=== PATIENT | male | born 1960 | race Caucasian/White ===

== ENCOUNTER 2021-02-13 07:05 | Outpatient (REF) | payer OTHER, SELFPAY ==
[2021-02-13 11:29] LABS: Glucose Urine UA NEG (NEG); Leukocyte Esterase Urine NEG (NEG); Nitrite Urine NEG (NEG); PH 6.5 (5.0-8.0); Specific Gravity - Urine 1.015 (1.005-1.025); Urine Blood NEG (NEG); Urine Ketones NEG (NEG); Urine Protein TRACE MG/DL (NEG-TRACE)
[2021-02-13 11:43] LABS: Appearance Urine CLEAR; Color Urine YELLOW
[2021-02-13 11:52] LABS: Alanine Aminotransferase 45 U/L (0-40); Albumin Level 4.1 g/dL (3.5-5.0); Alkaline Phosphatase 80 U/L (39-117); Anion Gap 14 (12-20); Aspartate Amino Transferase 42 U/L (5-37); Bilirubin Total 1.1 mg/dL (0.0-1.0); Blood Urea Nitrogen 29 mg/dL (9-16); Carbon Dioxide 27 mmol/L (22-29); Chloride 104 mmol/L (96-108); Cholesterol 149 mg/dL; Estimated Glomerular Filt Rate > 60; Glucose Fasting 96 mg/dL (60-99); HDL Cholesterol 52 mg/dL; LDL Cholesterol Calculated 82 mg/dl; Potassium 4.4 mmol/L (3.3-5.1); Sodium 141 mmol/L (135-145); Total Protein 6.6 g/dL (6.5-8.0); Triglycerides 79 mg/dL
[2021-02-13 11:55] LABS: RBC Urine 0-2 /HPF (0); Squamous Epithelial Cell Urine TRACE /LPF; WBC Urine 0 /HPF (0-4)
[2021-02-13 12:15] LABS: Prostate Specific Antigen Scr 0.82 ng/mL (<0.05-4.0); TSH reflex Free T4 1.51 uIU/mL (0.32-4.0)
== END 2021-02-13 07:06 | disposition home or self-care (01) ==
LOC: HO.HMGCLDS 07:05
PROVIDERS: PCP Nurse Practitioner Family; Referring Provider Nurse Practitioner Family; Visit Provider Nurse Practitioner Family
DX: Z00.00 Encounter for general adult medical examination without abnormal findings (principal); R22.30 Localized swelling, mass and lump, unspecified upper limb; Z12.5 Encounter for screening for malignant neoplasm of prostate
CPT/HCPCS: 36415; 80053; 80061; 81001; 84153; 84443

== ENCOUNTER 2021-03-07 12:55 | Outpatient (REF) | payer OTHER, SELFPAY ==
--- NOTE | ~2021-03-07 | US_ITS ---
EXAMINATION: ULTRASOUND EXTREMITY NONVASCULAR CLINICAL INFORMATION: Localized swelling, mass or lump right shoulder COMPARISON: None TECHNIQUE: Doppler, color and grayscale evaluation of the soft tissues over the anterior right shoulder in the area of palpable abnormality FINDINGS: Palpable abnormality corresponds to a 2.1 x 2.7 x 0.9 cm complex cystic lesion with some septations, areas of wall thickening and internal echoes. Ultrasound appearance is nonspecific. Abscess and hematoma should be considered. Management should be determined on a clinical basis. US/US extremity nonvascular IMPRESSION: Palpable abnormality corresponds to a 2.1 x 2.7 x 0.9 cm complex cystic lesion. Ultrasound appearance is nonspecific and management should be determined on a clinical basis.
== END 2021-03-07 12:56 | disposition home or self-care (01) ==
LOC: HO.HMGCX 12:55
PROVIDERS: Visit Provider Nurse Practitioner Family
DX: R22.30 Localized swelling, mass and lump, unspecified upper limb (principal)
CPT/HCPCS: 76882

== ENCOUNTER 2022-09-02 08:29 | Outpatient (REF) | payer OTHER, SELFPAY ==
--- NOTE | ~2022-09-02 | XR_ITS ---
EXAMINATION: XR SHOULDER, LEFT CLINICAL INFORMATION: Left shoulder pain. COMPARISON: None TECHNIQUE: Three views of the left shoulder. FINDINGS: Mild left glenohumeral degenerative joint changes are seen with small humeral head inferior periarticular marginal osteophyte. The left acromioclavicular joint is intact. The visualized left ribs are intact. The soft tissues are unremarkable XR/XR shoulder LT min 2V IMPRESSION: Mild left glenohumeral degenerative joint changes. No acute fracture.
--- NOTE | ~2022-09-02 | XR_ITS ---
EXAMINATION: XR ELBOW, LEFT CLINICAL INFORMATION: Left elbow pain. COMPARISON: None TECHNIQUE: AP, lateral, and oblique views of the left elbow. FINDINGS: The bones and soft tissues are normal. No fracture or joint effusion. Small osteophyte along the medial margin of the humeral ulnar joint space as well as medial humeral epicondyle. Alignment is anatomic. Joint spaces are maintained. XR/XR elbow LT min 3V IMPRESSION: Minimal degenerative joint changes. No no acute abnormality.
== END 2022-09-02 08:30 | disposition home or self-care (01) ==
LOC: HO.HMGCX 08:29
PROVIDERS: PCP Nurse Practitioner Family; Visit Provider Physician Assistant
DX: M25.512 Pain in left shoulder (principal); M25.522 Pain in left elbow
CPT/HCPCS: 73030; 73080

== ENCOUNTER → 2022-09-19 14:01 | Outpatient (BNVA) | payer OTHER, SELFPAY | PROVIDERS: PCP Nurse Practitioner Family; Visit Provider Physician Assistant | DX: M54.12 Radiculopathy, cervical region (principal) ==

== ENCOUNTER 2022-10-08 10:07 | Outpatient (REF) | payer OTHER, SELFPAY ==
--- NOTE | ~2022-10-08 | XR_ITS ---
EXAMINATION: XR CERVICAL SPINE CLINICAL INFORMATION: Radiculopathy, cervical region COMPARISON: None TECHNIQUE: 4 view cervical spine FINDINGS: No abnormal prevertebral soft tissue swelling is seen. No acute cervical spine fracture is noted. There is approximately 3 mm of anterior subluxation of C5 on C4. There is disc space narrowing seen C4-C7 with marginal spurring being seen C3-C7. There is approximately 3 mm of subluxation anteriorly of C5 on C6. There is multilevel bilateral facet degenerative change more significant along the left versus the right side of C2-C4 XR/XR cervical spine 3V IMPRESSION: Multilevel cervical spondylosis as described without fracture identified.
== END 2022-10-08 10:08 | disposition home or self-care (01) ==
LOC: HO.HMGCX 10:07
PROVIDERS: PCP Nurse Practitioner Family; Visit Provider Nurse Practitioner Family
DX: M54.12 Radiculopathy, cervical region (principal)
CPT/HCPCS: 72040

== ENCOUNTER → 2022-10-27 11:31 | Outpatient (BNVA) | payer OTHER, SELFPAY | PROVIDERS: PCP Nurse Practitioner Family; Visit Provider Anesthesiology | DX: Z13.89 Encounter for screening for other disorder (principal) ==

== ENCOUNTER → 2022-11-25 10:29 | Outpatient (BNVA) | payer OTHER, SELFPAY | PROVIDERS: PCP Nurse Practitioner Family; Visit Provider Physician Assistant | DX: Z13.89 Encounter for screening for other disorder (principal) ==

== ENCOUNTER 2022-12-17 09:17 | Outpatient (REF) | payer OTHER, SELFPAY ==
--- NOTE | 2022-12-17 09:19 | EMG_ITS ---
Please see scanned EMG / Nerve Conduction Report. MTDD
== END 2022-12-17 09:18 | disposition home or self-care (01) ==
LOC: HO.NEURO 09:17
PROVIDERS: PCP Nurse Practitioner Family; Visit Provider Nurse Practitioner Family
DX: R20.0 Anesthesia of skin (principal)
CPT/HCPCS: 95885; 95910

== ENCOUNTER 2023-06-25 07:47 | Outpatient (REF) | payer OTHER, SELFPAY ==
[2023-06-25 11:06] LABS: MANUAL DIFF FLAG NO
[2023-06-25 11:18] LABS: Appearance Urine Clear; Color Urine Yellow; Glucose Urine UA Negative (Negative); Leukocyte Esterase Urine Negative (Negative); Nitrite Urine Negative (Negative); Specific Gravity - Urine >= 1.030 (1.005-1.025); Urine Blood Negative (Negative); Urine Ketones Negative (Negative); Urine Protein Negative (Neg-Trace)
[2023-06-25 11:20] LABS: Eosinophils Absolute Auto 0.2 X10*3/uL (0.0-0.4); Eosinophils Percent Auto 5.1 % (0-4); Hemoglobin 16.2 g/dl (14.0-18.0); Imm Gran Abs Auto 0.01 X10*3/uL (0.00-0.03); Imm Gran Pct Auto 0.2 % (0.0-0.4); Lymphocytes Absolute Auto 1.3 X10*3/uL (1.2-4.9); Lymphocytes Percent Auto 31.6 % (20-40); Mean Corpuscular HGB Conc 34.5 g/dl (31.0-36.0); Mean Corpuscular Hemoglobin 32.5 pg (27.0-33.0); Mean Corpuscular Volume 94.2 fL (80.0-98.0); Mean Platelet Volume 9.5 fL (9.4-12.4); Monocytes Absolute Auto 0.5 X10*3/uL (0.1-1.2); Neutrophils Absolute Auto 2.1 x10*3/uL (2.0-8.3); Neutrophils Percent Auto 50.1 % (45-73); Platelet Count 308 X10*3/uL (160-400); Red Blood Count 4.99 X10*6/uL (4.60-5.80); Red Cell Distribution Width 13.6 % (11.0-16.0); White Blood Count 4.2 X10*3/uL (4.8-10.8)
[2023-06-25 11:46] LABS: Prostate Specific Antigen Scr 1.04 ng/mL (<0.05-4.0)
[2023-06-25 11:50] LABS: Alanine Aminotransferase 37 U/L (0-40); Albumin Level 4.3 g/dL (3.5-5.0); Alkaline Phosphatase 82 U/L (39-117); Anion Gap 16 (12-20); Aspartate Amino Transferase 43 U/L (5-37); Bilirubin Total 0.9 mg/dL (0.0-1.0); Blood Urea Nitrogen 25 mg/dL (9-16); Calcium 9.7 mg/dL (8.4-10.2); Carbon Dioxide 24 mmol/L (22-29); Chloride 104 mmol/L (96-108); Cholesterol 160 mg/dL (<200); Estimated Glomerular Filt Rate > 60; Glucose Fasting 98 mg/dL (60-99); HDL Cholesterol 52 mg/dL (>40); LDL Cholesterol Calculated 97 mg/dL (<100); Potassium 3.9 mmol/L (3.3-5.1); Sodium 140 mmol/L (135-145); Total Protein 7.2 g/dL (6.5-8.0); Triglycerides 55 mg/dL (<150)
[2023-06-25 12:13] LABS: TSH reflex Free T4 1.65 uIU/mL (0.32-4.0)
== END 2023-06-25 07:48 | disposition home or self-care (01) ==
LOC: HO.HMGCLDS 07:47
PROVIDERS: PCP Nurse Practitioner Family; Visit Provider Nurse Practitioner Family
DX: Z00.00 Encounter for general adult medical examination without abnormal findings (principal); Z12.5 Encounter for screening for malignant neoplasm of prostate; D72.819 Decreased white blood cell count, unspecified; Z13.0 Encounter for screening for diseases of the blood and blood-forming organs and certain disorders involving the immune mechanism; Z13.29 Encounter for screening for other suspected endocrine disorder; Z13.220 Encounter for screening for lipoid disorders
CPT/HCPCS: 36415; 80053; 80061; 81003; 84153; 84443; 85025

== ENCOUNTER 2023-08-19 13:21 | Outpatient (REF) | payer OTHER, SELFPAY ==
[2023-08-19 16:14] LABS: MANUAL DIFF FLAG NO
[2023-08-19 16:24] LABS: Basophils Absolute Auto 0.1 X10*3/uL (0.0-0.2); Eosinophils Absolute Auto 0.3 X10*3/uL (0.0-0.4); Eosinophils Percent Auto 4.3 % (0-4); Hematocrit 46.5 % (42.0-52.0); Imm Gran Abs Auto 0.02 X10*3/uL (0.00-0.03); Imm Gran Pct Auto 0.3 % (0.0-0.4); Lymphocytes Absolute Auto 1.6 X10*3/uL (1.2-4.9); Lymphocytes Percent Auto 28.2 % (20-40); Mean Corpuscular HGB Conc 34.4 g/dl (31.0-36.0); Mean Corpuscular Hemoglobin 32.4 pg (27.0-33.0); Mean Corpuscular Volume 94.1 fL (80.0-98.0); Mean Platelet Volume 9.7 fL (9.4-12.4); Monocytes Absolute Auto 0.6 X10*3/uL (0.1-1.2); Monocytes Percent Auto 10.1 % (2-11); Neutrophils Absolute Auto 3.2 x10*3/uL (2.0-8.3); Neutrophils Percent Auto 56.1 % (45-73); Platelet Count 319 X10*3/uL (160-400); Red Blood Count 4.94 X10*6/uL (4.60-5.80); Red Cell Distribution Width 13.3 % (11.0-16.0); White Blood Count 5.8 X10*3/uL (4.8-10.8)
== END 2023-08-19 13:22 | disposition home or self-care (01) ==
LOC: HO.HMGCLDS 13:21
PROVIDERS: PCP Nurse Practitioner Family; Visit Provider Nurse Practitioner Family
DX: D72.819 Decreased white blood cell count, unspecified (principal)
CPT/HCPCS: 36415; 85025

== ENCOUNTER 2024-01-18 12:54 | Outpatient (AMB) | payer OTHER, SELFPAY ==
--- NOTE | 2024-01-18 12:57 | MHC.PC.OV ---
Vital Signs 01/18/24 12:59 Height 5 ft 9 in Weight 229 lb BMI 33.8 BP 120/86 Blood Pressure Location Lt brachial Position Sitting Pulse 78 Pulse Source Pulse Oximeter Pulse Oximetry (%) 98 Oxygen Delivery Method Room Air Intake Visit Reasons: PE Intake Note: Patient here for physical exam. colon: needs to schedule appt. Allergies No Known Allergies [No Known Allergies*] Allergy (Verified 01/18/24 12:59) Medication List - Last Reconciled 01/18/24 by CONSTANTINE Andres aspirin 81 mg PO DAILY atorvastatin 40 mg PO DAILY bisacodyl (Dulcolax (bisacodyl)) 10 mg (2 x 5 mg) PO ONCE 1 day hydrochlorothiazide 25 mg PO DAILY 90 days polyethylene glycol 3350 (Miralax) 238 grams PO ONCE 1 day valsartan 80 mg PO DAILY 90 days Tobacco use date assessed: 01/18/24 Dental Screening Dental Screen Date: 01/18/24 Did you have a dental visit in the last 12 months?: Yes Did you have a dental problem in the last 6 months where you did not have access to dental care?: No Was dental information given to patient?: Patient has dentist HPI PE HPI Details Pt is here for a PE. Will order labs. PSA is up to date. Denies dribbling with urination, weak stream, and frequent nocturia. Pt has not scheduled his colon screen yet due to scheduling conflicts, will reach out to GI. Pt is bald and has fair skin, pt reports he will make his own derm appt. FORMERLY [facility] Medical History Fatty liver Surgical History History of total right hip arthroplasty History of removal of cyst Torn rotator cuff Family History Father Myocardial infarction Mother Alzheimer's disease COPD (chronic obstructive pulmonary disease) Maternal Grandfather No problems noted. Maternal Grandmother No problems noted. Paternal Grandfather Heart problem Paternal Grandmother No problems noted. Social History Household Members Other:: 3 kids- Housing: House Alcohol intake: current Alcohol intake frequency: a few times a week Patient Tobacco Use Status: Never used Tobacco e-Cigarette/Vaping Use: Never Used Current occupational status: employed Current occupation: [employer]/ right hand dominant Cognitive needs: No Hearing needs: No Vision needs: No Questionnaire PHQ-9 Over the last 2 weeks, how often have you been bothered by any of the following problems? 1. Little interest or pleasure in doing things: not at all 2. Feeling down, depressed, or hopeless: not at all 3. Trouble falling or staying asleep, or sleeping too much: not at all 4. Feeling tired or having little energy: not at all 5. Poor appetite or overeating: not at all 6. Feeling bad about yourself - or that you are a failure or have let yourself or your family down: not at all 7. Trouble concentrating on things, such as reading the newspaper or watching television: not at all 8. Moving or speaking so slowly that other people could have noticed. Or the opposite - being so fidgety or restless that you have been moving around a lot more than usual: not at all 9. Thoughts that you would be better off or of hurting yourself in some way: not at all Total score: 0 Depression Screening Interpretation: Negative Depression Screening Done: Yes 06576 - PHQ-9 Billing: Yes Source: Developed by Drs. Toby Harris, Anahi Alcantar, Min Hernandez and colleagues, with an educational aldo from [employer]. Thrive Questionnaire Date Thrive assessed: 01/18/24 I am a: Patient What is your living situation today?: I have a steady place to live Within the past 12 months, did the food you bought not last and you didn't have the money to get more?: Never true Within the past 12 months, did you worry whether your food would run out before you got money to buy more?: Never true Do you have trouble paying for medicines?: No Do you have trouble getting transportation to medical appointments?: No Do you have trouble paying your heating and electricity bill?: No Do you have trouble taking care of your child, family member or friend?: No Do you have trouble with day-to-day activities such as bathing, preparing meals, shopping, managing finances, etc.?: No Are you currently unemployed and looking for a job?: No Are you interested in more education?: No Currently or been in a relationship where the following occur: I choose not to answer this question THRIVE Score: 0 AUDIT C Alcohol Use Questionnaire (AUDIT-C) 1. How often do you have a drink containing alcohol?: 2-3 times a week 2. How many drinks containing alcohol do you have on a typical day when you are drinking?: 1 or 2 3. How often do you have six or more drinks on one occasion?: Never Total Score: 3 Score Reviewed/Action Taken: No MICHELL-7 AMB Questionnaire MICHELL-7 Date MICHELL - 7 assessed: 01/12/23 Feeling nervous, anxious, or on edge: 0 = Not at all Not being able to stop or control worryin = Not at all Worrying too much about different things: 0 = Not at all Trouble relaxin = Not at all Being so restless that it is hard to sit still: 0 = Not at all Becoming easily annoyed or irritable: 0 = Not at all Feeling afraid as if something awful might happen: 0 = Not at all Total MICHELL-7 score (0-4 normal; 5-9 mild; 10-14 moderate; 15-21 severe): 0 Source: Developed by Drs. Toby Harris, Anahi Alcantar, Min Hernandez and colleagues, with an educational aldo from [employer]. MICHELL-7 Assessment Billing MICHELL-7 Assessment Tool: MICHELL-7 Assessment 74162 Review of Systems Const Denies chills and Denies fever(s) Eyes Denies blurry vision ENT Denies vertigo, Denies dizziness and Denies sore throat Card Denies chest pain at rest, Denies chest pain with activity, Denies diaphoresis, Denies dyspnea and Denies dyspnea on exertion Resp Denies cough, Denies dyspnea, Denies dyspnea on exertion and Denies wheezing GI Denies abdominal pain, Denies melena, Denies hematochezia, Denies constipation, Denies diarrhea and Denies loose stools Denies hematuria Musc Denies numbness and Denies tingling Skin/Breast Denies lesions Neuro Denies vertigo, Denies dizziness, Denies numbness and Denies tingling Psych Denies anxiety, Denies depression, Denies homicidal ideation, Denies suicidal ideation and Denies other (substance abuse) Aller/Immun Denies wheezing Physical exam (Primary Care) Vital Signs: Last Vital Signs Pulse 78 01/18/24 12:59 BP 120/86 01/18/24 12:59 Pulse Ox 98 01/18/24 12:59 Oxygen Delivery Method Room Air 01/18/24 12:59 BMI result Body Mass Index 33.8 Tobacco/Smoking Status: Tobacco use Status Tobacco use date assessed 01/18/24 01/18/24 13:02 Patient Tobacco Use Status Never used Tobacco 01/18/24 12:59 e-Cigarette/Vaping Use Never Used 01/18/24 12:59 Depression Screening Interpretation: Negative Thrive Assessment: Date of Thrive Assessment Date Thrive assessed 01/12/23 01/18/24 12:59 Currently or been in a relationship where the following occur: I choose not to answer this question Const General: cooperative Nutritional Appearance: obese Orientation/consciousness: patient oriented x3 HENMT Head: Yes normal to inspection, Yes normocephalic and Yes atraumatic Ears: TM's normal bilaterally Eyes General: appearance normal, both eyes and all related structures Alignment and Position: alignment normal and position normal Neck Neck: Yes normal visual inspection and Yes no lymphadenopathy Thyroid: Thyroid normal Resp Effort & Inspection: normal respiratory effort Auscultation: clear to auscultation bilaterally Cardio Rate: regular rate Rhythm: regular rhythm Heart sounds: S1 normal heart sound present, S2 normal heart sound present and no murmurs GI Palpation (GI): Soft to palpation and nontender Auscultation: normal bowel sounds Male General Exam: Yes normal external exam Penis: normal penis Scrotum: scrotum normal, testes descended bilaterally and no inguinal hernias Testes: no testicular mass Skin Rashes: no rashes Neuro General: patient oriented x3, moves all extremities, no focal motor deficits and deep tendon reflexes 2+ bilaterally Romberg Test: Negative Psych Appearance: grossly normal Mental Status: mental status grossly normal Speech and movement: Normal speech and movement present Affect: normal affect Attitude: cooperative Thought process: Normal thought process present Thought content: Normal thought content present Insight: Good insight present (Psych) Judgement: Good judgement present (Psych) Assessment and Plan Assessment & Plan (1) Physical exam: Code(s): Z00.00 - Encounter for general adult medical examination without abnormal findings Plan: Labs ordered (2) Screening PSA (prostate specific antigen): Code(s): Z12.5 - Encounter for screening for malignant neoplasm of prostate Plan: PSA ordered Plan The patient agreed to the use of a biomedical equipment specialist for this encounter. Scribed for RENETTA Wheeler-BRANDON by Jena Horton biomedical equipment specialist, on 01/18/2024 at 13:15 EST. Orders: Orders Complete Blood Count Auto Diff Today Z00.00 - Encounter for general adult medical examination without abnormal findings UA CC w/rflx Micro + Cult Today Z00.00 - Encounter for general adult medical examination without abnormal findings Lipid Panel Today Z00.00 - Encounter for general adult medical examination without abnormal findings AMB EKG-In Office Today Z00.00 - Encounter for general adult medical examination without abnormal findings Comprehensive Norton. Panel Fast Today Z00.00 - Encounter for general adult medical examination without abnormal findings TSH reflex Free T4 Today Z00.00 - Encounter for general adult medical examination without abnormal findings Prostate Specific Antigen Scr Today Z12.5 - Encounter for screening for malignant neoplasm of prostate Coding Level of Care Code Est Pt Prev Care 40-64y(83452) Diagnoses Physical exam Z00.00 Screening PSA (prostate specific antigen) Z12.5 Additional Codes MICHELL-7 Assessment Billing - MICHELL-7 Assessment Tool: MICHELL-7 Assessment 55943 ([id number])
[2024-01-18 12:59] VITALS: BP 120/86; PULSE 78; O2SAT 98; BMI 33.8
== END 2024-01-18 13:39 | disposition home or self-care (01) ==
PROVIDERS: Visit Provider Nurse Practitioner Family
DX: Z00.00 Encounter for general adult medical examination without abnormal findings (principal); Z12.5 Encounter for screening for malignant neoplasm of prostate
CPT/HCPCS: 99396

== ENCOUNTER 2024-01-20 07:07 | Outpatient (REF) | payer OTHER, SELFPAY ==
[2024-01-20 10:36] LABS: MANUAL DIFF FLAG NO
[2024-01-20 10:39] LABS: Basophils Percent Auto 0.9 % (0-2); Eosinophils Percent Auto 7.4 % (0-4); Hematocrit 44.2 % (42.0-52.0); Hemoglobin 15.7 g/dl (14.0-18.0); Imm Gran Abs Auto 0.01 X10*3/uL (0.00-0.03); Mean Corpuscular HGB Conc 35.5 g/dl (31.0-36.0); Mean Corpuscular Hemoglobin 32.6 pg (27.0-33.0); Mean Corpuscular Volume 91.7 fL (80.0-98.0); Mean Platelet Volume 9.4 fL (9.4-12.4); Neutrophils Absolute Auto 2.1 x10*3/uL (2.0-8.3); Platelet Count 309 X10*3/uL (160-400); Red Blood Count 4.82 X10*6/uL (4.60-5.80); Red Cell Distribution Width 13.7 % (11.0-16.0); White Blood Count 4.4 X10*3/uL (4.8-10.8)
[2024-01-20 11:33] LABS: Alanine Aminotransferase 35 U/L (0-40); Alkaline Phosphatase 75 U/L (39-117); Anion Gap 14 (12-20); Aspartate Amino Transferase 38 U/L (5-37); Bilirubin Total 0.8 mg/dL (0.0-1.0); Blood Urea Nitrogen 27 mg/dL (9-16); Calcium 9.2 mg/dL (8.4-10.2); Carbon Dioxide 26 mmol/L (22-29); Chloride 104 mmol/L (96-108); Cholesterol 145 mg/dL (<200); Estimated Glomerular Filt Rate > 60; Glucose Fasting 98 mg/dL (60-99); HDL Cholesterol 52 mg/dL (>40); LDL Cholesterol Calculated 83 mg/dL (<100); Potassium 3.6 mmol/L (3.3-5.1); Sodium 140 mmol/L (135-145); Total Protein 6.9 g/dL (6.5-8.0); Triglycerides 51 mg/dL (<150)
== END 2024-01-20 07:08 | disposition home or self-care (01) ==
LOC: HO.HMGCLDS 07:07
PROVIDERS: PCP Nurse Practitioner Family; Visit Provider Nurse Practitioner Family
DX: Z00.00 Encounter for general adult medical examination without abnormal findings (principal); Z12.5 Encounter for screening for malignant neoplasm of prostate; Z13.6 Encounter for screening for cardiovascular disorders
CPT/HCPCS: 36415; 80053; 80061; 84153; 84443; 85025

== ENCOUNTER 2024-12-01 08:08 | Outpatient (AMB) | payer OTHER, SELFPAY ==
--- NOTE | 2024-12-01 08:20 | AM.OFFWIN_ITS ---
Intake Vital Signs 12/01/24 08:22 Height 5 ft 9 in Weight 230 lb BMI 34.0 BP 130/80 Blood Pressure Location Lt brachial Position Sitting Pulse 68 Pulse Source Pulse Oximeter Pulse Oximetry (%) 97 Oxygen Delivery Method Room Air Intake Visit Reasons: EP Lump on inside of LT knee, achilles pain Intake Note: Patient here for left knee pain that has been present on and off since last January. Patient Tobacco Use Status: Never used Tobacco Allergies No Known Allergies [No Known Allergies*] Allergy (Verified 12/01/24 08:37) Do you need a note to return to daycare/school/sports/work: No HPI HPI Comments History of Present Illness Details History of Present Illness - The patient is a 64-year-old male pres enting with a left knee lump and Achilles discomfort. - Approximately two weeks ago, the patie nt identified a lump on the knee, which remains unchanged in size and presents as non-bruised. Palpation of the lump elicits minor tenderness. There is no pain otherwise. - The patient experiences long-standing, since last January, mild discomfort in the Achilles tendon, which began the morning following his wedding. There is no recollection of a specific injury. - Management of the Achilles strain has consisted of stretching exercises and walking, with no significant exacerbation or resolution noted. Physical Exam General: Cooperative, healthy appearing, comfortable, no acute distress and well developed Orientation: Patient oriented x3 Limitations: No limitations Head: Normal to inspection Ears: Hearing grossly normal bilaterally Nose: Normal external nose present Face and sinus: Normal facial exam Eyes: Appearance normal, both eyes and all related structures Neck: Normal visual inspection and Yes full ROM Respiratory: Normal respiratory effort and able to speak in complete sentences. Skin: No rashes or lesions noted Neuro: Patient oriented x3 Extremities: left medial knee has a palpable, nonmobile 2cmx 1cm lump, no skin discoloration, slightly ttp. full rom FORMERLY [facility] Medical History Fatty liver Surgical History History of total right hip arthroplasty History of removal of cyst Torn rotator cuff Family History Father Myocardial infarction Mother Alzheimer's disease COPD (chronic obstructive pulmonary disease) Maternal Grandfather No problems noted. Maternal Grandmother No problems noted. Paternal Grandfather Heart problem Paternal Grandmother No problems noted. Social History Household Members Other:: 3 kids- Housing: House Alcohol intake: current Alcohol intake frequency: a few times a week Patient Tobacco Use Status: Never used Tobacco e-Cigarette/Vaping Use: Never Used Current occupational status: employed Current occupation: [employer]/ right hand dominant Cognitive needs: No Hearing needs: No Vision needs: No Review of Systems Const All systems reviewed & are unremarkable except as noted in HPI and below Physical Exam Vital Signs: Last Vital Signs Pulse 68 12/01/24 08:22 BP 130/80 12/01/24 08:22 Pulse Ox 97 12/01/24 08:22 Oxygen Delivery Method Room Air 12/01/24 08:22 BMI result Body Mass Index 34.0 Assessment & Plan Assessment & Plan (1) Knee pain, left anterior: Code(s): M25.562 - Pain in left knee Plan: The patient has been scheduled for an X-ray examination of the knee to evaluate the etiology of the lump, with results to be communicated afterward to decide on subsequent steps. Patient was informed and verbally consented to the use of an ambient scribe for clinic note documentation during this visit. (2) Achilles tendinitis, left leg: Code(s): M76.62 - Achilles tendinitis, left leg Plan: For the Achilles tendon strain, heel inserts were recommended to mitigate the strain and alleviate discomfort. Physical therapy with stretching exercises was suggested, supported by reputable online resources, and a potential follow-up with Oracio's office was planned if necessary. The management aims primarily at alleviating strain and monitoring improvement before considering advanced intervention. Orders: Orders XR knee LT 4V Today M25.562 - Pain in left knee Coding Level of Care Code Est Pt Level 4 (79290) Diagnoses Knee pain, left anterior M25.562 Achilles tendinitis, left leg M76.62
[2024-12-01 08:22] VITALS: BP 130/80; PULSE 68; O2SAT 97; BMI 34.0
== END 2024-12-01 08:56 | disposition home or self-care (01) ==
PROVIDERS: PCP Nurse Practitioner Family; Visit Provider Physician Assistant
DX: M25.562 Pain in left knee (principal); M76.62 Achilles tendinitis, left leg

== ENCOUNTER 2024-12-01 08:08 | Outpatient (REF) | payer OTHER, SELFPAY ==
--- NOTE | ~2024-12-01 | XR_ITS ---
EXAMINATION: XR KNEE 4 OR MORE VIEWS LEFT HISTORY: M25.562 - Pain in left knee COMPARISON: Comparison is made with a standing AP view of the left knee dated 03/26/2016. FINDINGS: Four views of the left knee are submitted. Osseous mineralization is normal. There is no fracture or dislocation. There is mild osteoarthritis of the lateral compartment with small osteophyte formation. There are multiple rounded osseous densities in the posterior aspect of the joint space suspicious for loose bodies. XR/XR knee LT 4V IMPRESSION: Mild osteoarthritis of the lateral compartment. Probable loose bodies. Electronically signed by: Toby Jones MD 12/01/2024 09:12 AM EDT
== END 2024-12-01 08:09 | disposition home or self-care (01) ==
LOC: HO.HMGCX 08:08
PROVIDERS: PCP Nurse Practitioner Family; Visit Provider Physician Assistant
DX: M25.562 Pain in left knee (principal); M76.62 Achilles tendinitis, left leg
CPT/HCPCS: 73564

== ENCOUNTER → 2024-12-01 08:53 | Outpatient (BNV) | payer OTHER, SELFPAY | PROVIDERS: PCP Nurse Practitioner Family; Visit Provider Radiology Diagnostic Radiology | DX: M25.562 Pain in left knee (principal) | CPT/HCPCS: 73564 ==

== ENCOUNTER 2024-12-12 15:24 | Outpatient (REF) | payer OTHER, SELFPAY ==
--- NOTE | ~2024-12-12 | US_ITS ---
EXAMINATION: US EXTREMITY MUSCULOSKELETAL LIMITED HISTORY: M25.562 - Pain in left knee COMPARISON: There are no prior studies for comparison. FINDINGS: Sonographic examination of a palpable abnormality at the anterior aspect of the left knee was performed. No soft tissue mass or fluid collection is identified. US/US extremity nonvascular gardiner IMPRESSION: No sonographic abnormality is seen to correspond to the palpable findings at the anterior aspect of the left knee. Electronically signed by: Toby Jones MD 12/12/2024 03:47 PM EDT
== END 2024-12-12 15:25 | disposition home or self-care (01) ==
LOC: HO.HMGCX 15:24
PROVIDERS: PCP Nurse Practitioner Family; Visit Provider Nurse Practitioner Family
DX: M25.562 Pain in left knee (principal); M79.9 Soft tissue disorder, unspecified
CPT/HCPCS: 76882

== ENCOUNTER → 2024-12-12 15:25 | Outpatient (BNV) | payer OTHER, SELFPAY | PROVIDERS: PCP Nurse Practitioner Family; Visit Provider Radiology Diagnostic Radiology | DX: M25.562 Pain in left knee (principal) | CPT/HCPCS: 76882 ==

== ENCOUNTER 2025-02-08 08:02 | Outpatient (AMB) | payer OTHER, SELFPAY ==
[2025-02-08 08:18] VITALS: BP 122/72; PULSE 80; O2SAT 95; BMI 32.9
--- NOTE | 2025-02-08 08:18 | MHC.OFFVIS ---
Vital Signs 02/08/25 08:18 Height 5 ft 9 in Weight 223 lb BMI 32.9 BP 122/72 Blood Pressure Location Lt brachial Position Sitting Pulse 80 Pulse Oximetry (%) 95 Oxygen Delivery Method Room Air Intake Visit Reasons: pre colonoscopy/[facility] 11/25/2022 Intake Note: Patient complex follow upfor Pre Colonoscopy screening/[facility] 11/25/2022 Patient denies any GI issues. Policy Specialist Required: No Accompanied by: Self / Same As Patient Allergies No Known Allergies [No Known Allergies*] Allergy (Verified 02/08/25 08:17) Medication List - Last Reconciled 02/08/25 by Yudy Riojas CNP aspirin 81 mg PO DAILY atorvastatin 40 mg PO DAILY bisacodyl (Dulcolax (bisacodyl)) 10 mg (2 x 5 mg) PO ONCE 1 day [id number]-Opqpgeochzfagac 500-200 mg tabs PO DAILY hydrochlorothiazide 25 mg PO DAILY 90 days multivitamin 1 tab PO DAILY omega-3 fatty acids-fish oil 360-1,200 mg (Fish Oil) 1 cap PO DAILY polyethylene glycol 3350 (Miralax) 238 grams PO ONCE 1 day valsartan 80 mg PO DAILY 90 days HPI HPI pre colonoscopy/[facility] 11/25/2022: Details: Patient is a 64-year-old male with PMH of hypertension and hyperlipidemia . Last visit with MORIAH Vasquez 11/25/2022 for pre colonoscopy screening, endoscopy not complete. Sonny presents for a consultation to discuss preparation for a rescheduled colonoscopy. He reports no current gastrointestinal symptoms. Reports daily bowel movement without issues, straining, constipation, loose stools, blood in stools, or upper stomach symptoms such as acid reflux, regurgitation, or trouble swallowing. Patient denies: fever/chills, n/v, appetite changes, unintentional wt loss or ab pain. -tolerated anesthesia in the past without difficulty. [facility] Medical History Fatty liver Surgical History History of total right hip arthroplasty History of removal of cyst Torn rotator cuff Family History Father Myocardial infarction Mother Alzheimer's disease COPD (chronic obstructive pulmonary disease) Maternal Grandfather No problems noted. Maternal Grandmother No problems noted. Paternal Grandfather Heart problem Paternal Grandmother No problems noted. Social History Household Members Other:: 3 kids- Housing: House Alcohol intake: current Alcohol intake frequency: a few times a week Patient Tobacco Use Status: Never used Tobacco e-Cigarette/Vaping Use: Never Used Current occupational status: employed Current occupation: [employer]/ right hand dominant Cognitive needs: No Hearing needs: No Vision needs: No Review of Systems Const Reports as per HPI ENT Reports as per HPI Card Reports as per HPI Resp Reports as per HPI GI Reports as per HPI Reports as per HPI Physical Exam Vital Signs: Last Vital Signs Pulse 80 02/08/25 08:18 BP 122/72 02/08/25 08:18 Pulse Ox 95 02/08/25 08:18 Oxygen Delivery Method Room Air 02/08/25 08:18 BMI result Body Mass Index 32.9 Const General: healthy appearing, no acute distress and well developed Nutritional Appearance: well nourished Orientation/consciousness: patient oriented x3 HEENT Head: Yes normal to inspection, Yes normocephalic and Yes atraumatic Face and sinus: Yes normal facial exam Eyes General: appearance normal, both eyes and all related structures Neck Neck: Yes normal visual inspection Resp Effort & Inspection: normal respiratory effort, able to speak in complete sentences, no tracheal deviation and symmetric chest movement Auscultation: clear to auscultation bilaterally Cardio Jugular venous distension: no JVD Rate: regular rate Rhythm: regular rhythm Heart sounds: S1 normal heart sound present, S2 normal heart sound present, no gallops and no murmurs GI Inspection: Yes normal to inspection and No distended Palpation (GI): Soft to palpation, not firm, nontender and No hepatosplenomegaly present Auscultation: normal bowel sounds Neuro General: patient oriented x3 Gait exam (Neuro): Normal gait present Psych Appearance: grossly normal Mental Status: mental status grossly normal Speech and movement: Normal speech and movement present Affect: normal affect Attitude: cooperative Thought process: Normal thought process present Thought content: Normal thought content present Insight: Good insight present (Psych) Judgement: Good judgement present (Psych) Assessment & Plan Assessment & Plan (1) Screening for colon cancer: Code(s): Z12.11 - Encounter for screening for malignant neoplasm of colon Category: Medical Plan: Overdue for 10 year colonoscopy screening. Diagnostic Tests: Prescriptions for laxative tablets and Miralax sent to pharmacy; instructions for Gatorade purchase and clear liquid diet given. Medications: - ASA and NSAIDs (examples provided) hold 7 days prior to procedure. - Use Tylenol if needed for pain. Patient educated on procedure preparation, including avoiding certain foods and ensuring clear liquid intake. Advised on necessity for ride post-procedure due to sedation. Plan Follow-up as needed. Time: I spent a total of 25 minutes on the date of encounter which includes: Preparing to see the patient (reviewed previous documentation, test results and medical history) Performing a medically appropriate exam and/or evaluation Ordering medications, tests, and procedures Documenting clinical information in the health record Medications: Refilled bisacodyl (Dulcolax (bisacodyl)) Take 2 tablets by mouth at 12:00pm the day before your procedure. 10 mg (2 x 5 mg) PO ONCE 1 day 2 tabs 0RF colonoscopy prep Z12.11 - Encounter for screening for malignant neoplasm of colon polyethylene glycol 3350 (Miralax) Take as directed by mouth the day before your procedure. 238 grams PO ONCE 1 day 238 grams 0RF Coding Level of Care Code Established Pt Est Pt Level 3 (62285) Patient Type Established Diagnoses Screening for colon cancer Z12.11
== END 2025-02-08 08:36 | disposition home or self-care (01) ==
LOC: HO.HGI 08:03
PROVIDERS: PCP Nurse Practitioner Family; Visit Provider Nurse Practitioner Family
DX: Z01.818 Encounter for other preprocedural examination (principal); Z12.11 Encounter for screening for malignant neoplasm of colon
CPT/HCPCS: 99213

== ENCOUNTER 2025-02-14 12:50 | Outpatient (AMB) | payer OTHER, SELFPAY ==
[2025-02-14 12:55] VITALS: BP 130/70; PULSE 78; RESP 16; TEMP 36.7; O2SAT 98; BMI 34.0
--- NOTE | 2025-02-14 12:55 | MHC.PC.OV ---
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 Accompanied by: Self / Same As Patient Allergies No Known Allergies [No Known Allergies*] Allergy (Verified 02/14/25 12:55) Medication List - Last Reconciled 02/14/25 by RENETTA Andres- aspirin 81 mg PO DAILY tdjiyqmfinl-L-Amnhoksdsfhdews 500-200 mg tabs PO DAILY hydrochlorothiazide 25 mg PO DAILY 90 days multivitamin 1 tab PO DAILY omega-3 fatty acids-fish oil 360-1,200 mg (Fish Oil) 1 cap PO DAILY pitavastatin calcium (Livalo) 2 mg PO QPM valsartan 80 mg PO DAILY 90 days Tobacco use date assessed: 02/14/25 Dental Screening Dental Screen Date: 02/14/25 Did you have a dental visit in the last 12 months?: Yes Did you have a dental problem in the last 6 months where you did not have access to dental care?: No Was dental information given to patient?: Patient has dentist HPI PE HPI Details History of Present Illness The patient is a 64-year-old male presenting with generalized joint pain. He reports that the pain is primarily in his hands, particularly in the proximal interphalangeal and second MCP joint of the right hand, with noted swelling and puffiness. He is also experiencing increased shortness of breath when engaging in heavy exertion, which is most likely associated with his obesity, a chronic issue for which he is under management. Despite his joint pain, he understands and practices the principle motion is lotion for joint health. There were no reports of fever, chills, or any gastrointestinal issues such as constipation or diarrhea. The annual dermatological evaluations address his macular lesions without progression noted. NOTE: increase in pains with statin, will try a different statin, check labs in approx 2 months. Health Maintenance - Annual dermatological evaluations for submacular lesions - Colonoscopy scheduling for colorectal cancer screening Social History - Reports engagement in physical activities, though limited by joint pain and obesity - Under management for obesity through unspecified measures Review of Systems - Constitutional: Denies fever and chills - Respiratory: Reports increased shortness of breath with heavy exertion; denies chest pain - Gastrointestinal: Denies abdominal pain, blood in stool, constipation, and diarrhea - Musculoskeletal: Reports generalized joint pain, particularly in the hands -denies any urinary issues Physical Exam General: Cooperative, healthy appearing, comfortable, no acute distress and well developed Orientation: Patient oriented x3 Limitations: No limitations Head: Bald with subromacular lesions, sees a graduate school dean on a yearly basis Ears: Hearing grossly normal bilaterally Nose: Normal external nose present Face and sinus: Normal facial exam Eyes: Appearance normal, both eyes and all related structures Neck: Normal visual inspection and Yes full ROM Respiratory: Normal respiratory effort and able to speak in complete sentences. Clear to auscultation bilaterally. Reports increased shortness of breath with heavy exertion Cardiovascular: Regular rate and rhythm. Normal S1 and S2 GI: Normal to inspection. Soft to palpation and nontender Skin: No rashes or lesions noted Neuro: Patient oriented x3 Extremities: Right hand second MCP joint is a little swollen. Proximal interphalangeal joints are a little bit puffy. Generalized joint pain noted in elbows, shoulders, and knees. Normal to inspection otherwise, without swelling or erythema. Results Plan A colonoscopy will be scheduled to facilitate colorectal cancer screening. To evaluate the joint pain, particularly in the right hand, an x-ray will be performed and laboratory tests will be ordered. Lifestyle adjustments, holistic health management, and possibly dietary counseling will be explored to address obesity. Ongoing annual dermatology check-ups to monitor macular lesions continue to be essential in maintaining skin health. Discussion Notes I informed the patient that a colonoscopy should be organized shortly to maintain appropriate cancer screening protocols. The current strategy includes obtaining an x-ray to better understand his joint issues. We discuss how lifestyle changes are paramount to both alleviate his respiratory strain due to obesity and improve overall joint health. Risks, benefits, and potential results of these diagnostic tests and lifestyle interventions were thoroughly discussed, emphasizing consistent follow-up on changes in symptoms or moderate changes in the condition of his submacular lesions. Patient Instructions - Await scheduling for colonoscopy - Undergo an x-ray of the right hand as ordered - Engage in appropriate physical activities that do not exacerbate joint pain - Consider dietary changes to assist with weight management - Continue follow-ups with dermatology as needed [facility] Medical History Fatty liver Surgical History History of total right hip arthroplasty History of removal of cyst Torn rotator cuff Family History Father Myocardial infarction Mother Alzheimer's disease COPD (chronic obstructive pulmonary disease) Maternal Grandfather No problems noted. Maternal Grandmother No problems noted. Paternal Grandfather Heart problem Paternal Grandmother No problems noted. Social History Household Members Other:: 3 kids- Housing: House Alcohol intake: current Alcohol intake frequency: a few times a week Patient Tobacco Use Status: Never used Tobacco e-Cigarette/Vaping Use: Never Used Current occupational status: employed Current occupation: [employer]/ right hand dominant Cognitive needs: No Hearing needs: No Vision needs: No Questionnaire PHQ-9 Over the last 2 weeks, how often have you been bothered by any of the following problems? 1. Little interest or pleasure in doing things: not at all 2. Feeling down, depressed, or hopeless: not at all 3. Trouble falling or staying asleep, or sleeping too much: not at all 4. Feeling tired or having little energy: not at all 5. Poor appetite or overeating: not at all 6. Feeling bad about yourself - or that you are a failure or have let yourself or your family down: not at all 7. Trouble concentrating on things, such as reading the newspaper or watching television: not at all 8. Moving or speaking so slowly that other people could have noticed. Or the opposite - being so fidgety or restless that you have been moving around a lot more than usual: not at all 9. Thoughts that you would be better off or of hurting yourself in some way: not at all Total score: 0 Depression Screening Interpretation: Negative Depression Screening Done: Yes 95547 - PHQ-9 Billing: Yes Source: Developed by Drs. Toby Harris, Anahi Alcantar, Min Hernandez and colleagues, with an educational aldo from [employer]. Thrive Questionnaire Date Thrive assessed: 02/14/25 I am a: Patient What is your living situation today?: I have a steady place to live Within the past 12 months, did the food you bought not last and you didn't have the money to get more?: Never true Within the past 12 months, did you worry whether your food would run out before you got money to buy more?: Never true Do you have trouble paying for medicines?: No Do you have trouble getting transportation to medical appointments?: No Do you have trouble paying your heating and electricity bill?: No Do you have trouble taking care of your child, family member or friend?: No Do you have trouble with day-to-day activities such as bathing, preparing meals, shopping, managing finances, etc.?: No Are you currently unemployed and looking for a job?: No Are you interested in more education?: No Please select the resources that you would like help with: None Currently or been in a relationship where the following occur: No concerns reported THRIVE Score: 0 AUDIT C Alcohol Use Questionnaire (AUDIT-C) 1. How often do you have a drink containing alcohol?: 2-4 times a month 2. How many drinks containing alcohol do you have on a typical day when you are drinking?: 1 or 2 3. How often do you have six or more drinks on one occasion?: Never Total Score: 2 Score Reviewed/Action Taken: Yes MICHELL-7 AMB Questionnaire MICHELL-7 Date MICHELL - 7 assessed: 02/14/25 Feeling nervous, anxious, or on edge: 0 = Not at all Not being able to stop or control worryin = Not at all Worrying too much about different things: 0 = Not at all Trouble relaxin = Not at all Being so restless that it is hard to sit still: 0 = Not at all Becoming easily annoyed or irritable: 0 = Not at all Feeling afraid as if something awful might happen: 0 = Not at all Total MICHELL-7 score (0-4 normal; 5-9 mild; 10-14 moderate; 15-21 severe): 0 Source: Developed by Drs. Toby Harris, Anahi Alcantar, Min Hernandez and colleagues, with an educational aldo from [employer]. MICHELL-7 Assessment Billing MICHELL-7 Assessment Tool: MICHELL-7 Assessment 66711 Physical exam (Primary Care) Vital Signs: Last Vital Signs Temp 98.0 F 02/14/25 12:55 Pulse 78 02/14/25 12:55 Resp 16 02/14/25 12:55 BP 130/70 02/14/25 12:55 Pulse Ox 98 02/14/25 12:55 BMI result Body Mass Index 34.0 Tobacco/Smoking Status: Tobacco use Status Tobacco use date assessed 02/14/25 02/14/25 12:56 Patient Tobacco Use Status Never used Tobacco 02/14/25 12:56 e-Cigarette/Vaping Use Never Used 02/14/25 12:56 PHQ-9: PHQ-9 Score PHQ-9: Total score 0 02/14/25 12:56 Depression Screening Interpretation: Negative Thrive Assessment: Date of Thrive Assessment Date Thrive assessed 02/14/25 02/14/25 12:56 Currently or been in a relationship where the following occur: No concerns reported Coding Level of Care Code Est Pt Prev Care 40-64y(82830) Diagnoses Physical exam Z00.00 Screening PSA (prostate specific antigen) Z12.5 Arthralgia M25.50 Right hand pain M79.641 Additional Codes MICHELL-7 Assessment Billing - MICHELL-7 Assessment Tool: MICHELL-7 Assessment 98945 ([id number]) PHQ-9 - 21090 - PHQ-9 Billing: Yes ([id number]) Assessment & Plan Assessment & Plan (1) Physical exam: Code(s): Z00.00 - Encounter for general adult medical examination without abnormal findings Category: Medical (2) Screening PSA (prostate specific antigen): Code(s): Z12.5 - Encounter for screening for malignant neoplasm of prostate Category: Medical (3) Arthralgia: Code(s): M25.50 - Pain in unspecified joint Category: Medical (4) Right hand pain: Code(s): M79.641 - Pain in right hand Category: Medical Plan . Orders: Orders Complete Blood Count Auto Diff Today Z00.00 - Encounter for general adult medical examination without abnormal findings Lipid Panel Today Z00.00 - Encounter for general adult medical examination without abnormal findings Prostate Specific Antigen Scr Today Z12.5 - Encounter for screening for malignant neoplasm of prostate C Reactive Protein Today M25.50 - Pain in unspecified joint Rheumatoid Factor Today M25.50 - Pain in unspecified joint Tick-borne Disease Molecular Today M25.50 - Pain in unspecified joint Lyme IgG/IgM w/reflex to WB Today M25.50 - Pain in unspecified joint Comprehensive [place]. Panel Fast Today Z00.00 - Encounter for general adult medical examination without abnormal findings TSH reflex Free T4 Today Z00.00 - Encounter for general adult medical examination without abnormal findings UA CC w/rflx Micro + Cult Today Z00.00 - Encounter for general adult medical examination without abnormal findings Uric Acid Today M25.50 - Pain in unspecified joint Erythrocyte Sedimentation Rate Today M25.50 - Pain in unspecified joint ELLIOTT Reflex Titer and Pattern Today M25.50 - Pain in unspecified joint Cyclic Citrullinated Peptide Today M25.50 - Pain in unspecified joint Sjogren's Antibodies Today M25.50 - Pain in unspecified joint XR hand RT 2V Today M79.641 - Pain in right hand Medications: New pitavastatin calcium (Livalo) 2 mg PO QPM 90 tabs 0RF
== END 2025-02-14 13:33 | disposition home or self-care (01) ==
LOC: HO.HMCC 12:51
PROVIDERS: PCP Nurse Practitioner Family; Visit Provider Nurse Practitioner Family
DX: Z00.00 Encounter for general adult medical examination without abnormal findings (principal); Z12.5 Encounter for screening for malignant neoplasm of prostate; M25.50 Pain in unspecified joint; M79.641 Pain in right hand

== ENCOUNTER → 2025-02-14 12:50 | Outpatient (BNVA) | payer OTHER, SELFPAY | PROVIDERS: PCP Nurse Practitioner Family; Visit Provider Nurse Practitioner Family | DX: Z00.00 Encounter for general adult medical examination without abnormal findings (principal); M54.50 Low back pain, unspecified; M79.641 Pain in right hand | CPT/HCPCS: 96127 ==

== ENCOUNTER 2025-06-15 07:42 | Outpatient (REF) | payer OTHER, SELFPAY ==
[2025-06-15 10:19] LABS: MANUAL DIFF FLAG NO
[2025-06-15 10:30] LABS: Hematocrit 44.2 % (42.0-52.0); Hemoglobin 15.8 g/dl (14.0-18.0); Imm Gran Abs Auto 0.02 X10*3/uL (0.00-0.03); Imm Gran Pct Auto 0.4 % (0.0-0.4); Lymphocytes Absolute Auto 1.3 X10*3/uL (1.2-4.9); Mean Corpuscular HGB Conc 35.7 g/dl (31.0-36.0); Mean Corpuscular Hemoglobin 31.8 pg (27.0-33.0); Mean Corpuscular Volume 88.9 fL (80.0-98.0); NRBC Abs Auto 0.000 X10*3/uL (0.0-0.012); NRBC Pct Auto 0.0 /100WBC (0.0-0.2); Platelet Count 300 X10*3/uL (160-400); Red Blood Count 4.97 X10*6/uL (4.60-5.80); White Blood Count 4.8 X10*3/uL (4.8-10.8)
[2025-06-15 10:31] LABS: Appearance Urine Clear; Glucose Urine UA Negative (Negative); PH 6.5 (5.0-9.0); Specific Gravity - Urine 1.020 (1.005-1.025)
[2025-06-15 10:58] LABS: Alanine Aminotransferase 43 U/L (0-40); Albumin Level 4.4 g/dL (3.5-5.0); Alkaline Phosphatase 83 U/L (39-117); Anion Gap 12 (12-20); Aspartate Amino Transferase 40 U/L (5-37); Blood Urea Nitrogen 24 mg/dL (9-16); Calcium 9.4 mg/dL (8.4-10.2); Carbon Dioxide 27 mmol/L (22-29); Chloride 104 mmol/L (96-108); Cholesterol 159 mg/dL (<200); Estimated Glomerular Filt Rate > 60; HDL Cholesterol 51 mg/dL (>40); Potassium 3.6 mmol/L (3.3-5.1); Sodium 139 mmol/L (135-145); Total Protein 7.1 g/dL (6.5-8.0); Triglycerides 66 mg/dL (<150)
[2025-06-15 11:04] LABS: Uric Acid 5.8 mg/dL (3.4-7.0)
[2025-06-16 06:28] LABS: Lyme Abs Screen <0.90 index
[2025-06-16 11:28] LABS: Anti Nuclear Antibody Screen NEGATIVE (NEGATIVE)
[2025-06-16 21:28] LABS: A. Phagocytphilium DNA,RT-PCR NOT DETECTED (NOT DETECTED); Babesia Microti DNA, RT-PCR NOT DETECTED (NOT DETECTED); Borrelia Miyamotoi,DNA RT-PCR NOT DETECTED (NOT DETECTED); E.Chaffeensis DNA RT-PCR NOT DETECTED (NOT DETECTED); Lyme(Borrelia ssp)DNA RT-PCR NOT DETECTED (NOT DETECTED)
[2025-06-19 07:04] LABS: Antibody to SS-A Antigen <1.0 NEG AI (<1.0 NEG); Antibody to SS-B Antigen <1.0 NEG AI (<1.0 NEG)
== END 2025-06-15 07:43 | disposition home or self-care (01) ==
LOC: HO.HMGCLDS 07:42
PROVIDERS: PCP Nurse Practitioner Family; Visit Provider Nurse Practitioner Family
DX: Z00.00 Encounter for general adult medical examination without abnormal findings (principal); Z12.5 Encounter for screening for malignant neoplasm of prostate; Z13.6 Encounter for screening for cardiovascular disorders; M25.50 Pain in unspecified joint
CPT/HCPCS: 36415; 80053; 80061; 81003; 84153; 84443; 84550; 85025; 85652; 86038; 86140; 86200; 86235; 86431; 86617; 86618; 87468; 87469; 87478; 87484; 87798

== ENCOUNTER 2025-08-11 07:38 | Outpatient (REF) | payer OTHER, SELFPAY ==
--- NOTE | ~2025-08-11 | US_ITS ---
CLINICAL HISTORY: R74.8 - Abnormal levels of other serum enzymes US abdomen complete with color Doppler Comparison: None Findings: Midline structures obscured by bowel gas. Normal caliber abdominal aorta where visualized. Liver normal size and diffusely echogenic. Right lobe 14.4 cm length. No focal hepatic masses. Common duct 1.6 mm diameter. Physiologic distention of the gallbladder. No gallstones or sludge. No gallbladder wall thickening. No pericholecystic fluid. No sonographic Spivey sign. Right kidney normal size, 13.3 cm in length. Normal cortical width and echotexture. No solid or cystic renal masses. No nephrolithiasis. No hydronephrosis. Left kidney normal, 12.2 cm in length. Normal cortical width and echotexture. No solid or cystic renal masses. No nephrolithiasis. No hydronephrosis. Spleen measures 10.4 cm. No splenic masses. No ascites. No lymphadenopathy. Impression: 1. Normal-sized liver diffusely echogenic reflecting mild diffuse hepatic steatosis or diffuse hepatocellular disease. 2. Midline structures obscured by bowel gas This document has been electronically signed by: Saqib Hardy MD on 08/11/2025 13:00:03
[2025-08-11 11:09] LABS: HBS Num1 0.00 mIU/mL (0-7.99); HBc Num1 0.08 S/CO (0.00-0.79); HBsAGNum1 0.45 S/CO (0.00-0.99); Hepatitis A Antibody IgM 0.21 Index (0-0.79); Hepatitis B Surface Antigen Negative (Negative); ~HepC Num1 0.14 S/CO (0.00-0.79); ~Hepatitis A Antibody IgM Nonreactive (Nonreactive); ~Hepatitis B Surface Antibody NONREACTIVE (Nonreactive); ~Hepatitis C Antibody Nonreactive (Nonreactive)
== END 2025-08-11 07:39 | disposition home or self-care (01) ==
LOC: HO.HMGCX 07:38
PROVIDERS: PCP Nurse Practitioner Family; Visit Provider Nurse Practitioner Family
DX: R74.8 Abnormal levels of other serum enzymes (principal)
CPT/HCPCS: 36415; 76700; 86704; 86706; 86709; 86803; 87340

== ENCOUNTER → 2025-08-11 09:31 | Outpatient (BNV) | payer OTHER, SELFPAY | PROVIDERS: PCP Nurse Practitioner Family; Visit Provider Radiology Diagnostic Radiology | DX: R74.8 Abnormal levels of other serum enzymes (principal) | CPT/HCPCS: 76700 ==

== ENCOUNTER 2025-08-15 11:29 | Outpatient (AMB) | payer OTHER, SELFPAY ==
[2025-08-15 11:51] VITALS: BP 126/72; PULSE 86; O2SAT 96; BMI 34.6
--- NOTE | 2025-08-15 11:51 | A.OFFPC_ITS ---
Vital Signs 08/15/25 11:51 Height 5 ft 9 in Weight 234 lb BMI 34.6 BP 126/72 Blood Pressure Location Lt brachial Position Sitting Pulse 86 Pulse Source Pulse Oximeter Pulse Oximetry (%) 96 Intake Visit Reasons: 6 months f/up Allergies No Known Allergies (No Known Allergies*) Allergy (Verified 08/15/25 11:55) Medication List - Last Reconciled 08/15/25 by RENETTA Andres- aspirin 81 mg PO DAILY vjpjjqjoyay-N-Jjuhokkgtifwdhy 500-200 mg tabs PO DAILY hydrochlorothiazide 25 mg PO DAILY multivitamin 1 tab PO DAILY omega-3 fatty acids-fish oil 360-1,200 mg (Fish Oil) 1 cap PO DAILY pitavastatin calcium (Livalo) 2 mg PO QPM valsartan 80 mg PO DAILY 90 days Tobacco use date assessed: 02/14/25 Fall risk assessment: No Falls in past year Last assessed Fall Risk: 08/15/25 Dental Screening Dental Screen Date: 02/14/25 HPI 6 months f/up HPI Details History of Present Illness The patient is a 65 year old individual presenting for a follow up/elevated liver enzymes/obesity The patient has a history of obesity and will be working on weight loss by managing portion sizes, increasing exercise, and monitoring dietary intake. The patient also has a history of hepatic steatosis, and lab work from a couple of months ago revealed slightly elevated liver enzymes. For health maintenance, the patient's PSA is up-to-date and a colonoscopy is scheduled for the near future. The patient sees a mechanic general operational test on a regular basis for skin monitoring. Health Maintenance The patient will proceed with the upcoming scheduled colonoscopy. The patient will continue regular follow-up with a mechanic general operational test for skin surveillance. Social History - Exercise: The patient has been trying to exercise more. - Diet: The patient is working on [employer] and watching what the patient is eating for weight loss. - Substance Use: The importance of watch ing alcohol intake was discussed. Review of Systems - Constitutional: Denies fever and chill s. - Cardiovascular: Denies chest pain. - Respiratory: Denies dyspnea. - Gastrointestinal: Denies melena, const ipation, and diarrhea. - Genitourinary: Denies any urinary issu es. - Psychiatric: Denies suicidal or homici monica ideation. Physical Exam General: Cooperative, healthy appearing, comfortable, no acute distress, well developed, and a little bit obese Orientation: Patient oriented x3 Limitations: No limitations Head: Normal to inspection Ears: Hearing grossly normal bilaterally Nose: Normal external nose present Face and sinus: Normal facial exam Eyes: Appearance normal, both eyes and all related structures Neck: Normal visual inspection and Yes full ROM Respiratory: Normal respiratory effort and able to speak in complete sentences. Clear to auscultation bilaterally Cardiovascular: Regular rate and rhythm. Normal S1 and S2 GI: Normal to inspection. Soft to palpation and nontender : Testicles without masses/lesions and no hernias appreciated Skin: Scalp is exposed with several macular lesions with slightly darker pigmentation Neuro: Patient oriented x3 Extremities: Normal to inspection Results - Labs: Slightly elevated liver enzymes were noted a couple of months ago. - Tests and Diagnostics: PSA is up-to-da te. Plan 1. Obesity Weight loss remains a primary goal. The patient will continue efforts with portion control, increased exercise, and dietary monitoring. 2. Hepatic Steatosis And Elevated Liver Enzymes Given the patient's history of hepatic steatosis and slightly elevated liver enzymes, the importance of weight loss and moderating alcohol intake has been emphasized. Repeat labs will be ordered to re-evaluate liver function. Discussion Notes I discussed with the patient that weight loss is the biggest goal to address the patient's obesity and history of fatty liver. I reiterated the importance of continuing to work on portion sizes, increasing exercise, and monitoring dietary intake. I also expressed the importance of watching alcohol consumption. I informed the patient that I would be ordering repeat labs, including liver function tests. We acknowledged the patient's upcoming colonoscopy and regular dermatology visits as part of routine health maintenance. Patient Instructions - Continue your efforts to lose weight b y controlling your portion sizes, exercising more, and being mindful of what you eat. - It is important to limit your alcohol intake due to your history of fatty liver. - We will be repeating some of your lab work. - Please proceed with your colonoscopy a s scheduled. - Continue to see your mechanic general operational test on a regular basis for skin checks. [facility] Medical History Fatty liver Surgical History History of total right hip arthroplasty History of removal of cyst Torn rotator cuff Family History Father Myocardial infarction Mother Alzheimer's disease COPD (chronic obstructive pulmonary disease) Maternal Grandfather No problems noted. Maternal Grandmother No problems noted. Paternal Grandfather Heart problem Paternal Grandmother No problems noted. Social History Household Members Other:: 3 kids- Housing: House Alcohol intake: current Alcohol intake frequency: a few times a week Patient Tobacco Use Status: Never used Tobacco e-Cigarette/Vaping Use: Never Used Current occupational status: employed Current occupation: [employer]/ right hand dominant Cognitive needs: No Hearing needs: No Vision needs: No Questionnaire PHQ-9 Over the last 2 weeks, how often have you been bothered by any of the following problems? 1. Little interest or pleasure in doing things: not at all 2. Feeling down, depressed, or hopeless: not at all 3. Trouble falling or staying asleep, or sleeping too much: not at all 4. Feeling tired or having little energy: not at all 5. Poor appetite or overeating: not at all 6. Feeling bad about yourself - or that you are a failure or have let yourself or your family down: not at all 7. Trouble concentrating on things, such as reading the newspaper or watching television: not at all 8. Moving or speaking so slowly that other people could have noticed. Or the opposite - being so fidgety or restless that you have been moving around a lot more than usual: not at all 9. Thoughts that you would be better off or of hurting yourself in some way: not at all Total score: 0 Depression Screening Interpretation: Negative Depression Screening Done: Yes 91031 - PHQ-9 Billing: Yes Source: Developed by Drs. Toby Harris, Anahi Alcantar, Min Hernandez and colleagues, with an educational aldo from [employer]. Thrive Questionnaire Date Thrive assessed: 02/08/25 I am a: Patient What is your living situation today?: I have a steady place to live Within the past 12 months, did the food you bought not last and you didn't have the money to get more?: Never true Within the past 12 months, did you worry whether your food would run out before you got money to buy more?: Never true Do you have trouble paying for medicines?: No Do you have trouble getting transportation to medical appointments?: No Do you have trouble paying your heating and electricity bill?: No Do you have trouble taking care of your child, family member or friend?: No Do you have trouble with day-to-day activities such as bathing, preparing meals, shopping, managing finances, etc.?: No Are you currently unemployed and looking for a job?: No Are you interested in more education?: No Please select the resources that you would like help with: None Currently or been in a relationship where the following occur: No concerns reported THRIVE Score: 0 AUDIT C Alcohol Use Questionnaire (AUDIT-C) 3. How often do you have six or more drinks on one occasion?: Monthly Total Score: 2 MICHELL-7 AMB Questionnaire MICHELL-7 Date MICHELL - 7 assessed: 02/14/25 Source: Developed by Drs. Toby Harris, Anahi Alcantar, Min Hernandez and colleagues, with an educational aldo from [employer]. Physical exam (Primary Care) Vital Signs: Last Vital Signs Pulse 86 08/15/25 11:51 BP 126/72 08/15/25 11:51 Pulse Ox 96 08/15/25 11:51 BMI result Body Mass Index 34.6 Tobacco/Smoking Status: Tobacco use Status Tobacco use date assessed 02/14/25 08/15/25 11:51 Patient Tobacco Use Status Never used Tobacco 08/15/25 11:51 e-Cigarette/Vaping Use Never Used 08/15/25 11:51 PHQ-9: PHQ-9 Score PHQ-9: Total score 0 08/15/25 11:51 Depression Screening Interpretation: Negative Thrive Assessment: Date of Thrive Assessment Date Thrive assessed 02/08/25 08/15/25 11:51 Currently or been in a relationship where the following occur: No concerns reported Coding Level of Care Code Est Pt Level 3 (13887) Diagnoses Physical exam Z00.00 Encounter for routine adult physical exam with abnormal findings Z00.01 Additional Codes PHQ-9 - 80791 - PHQ-9 Billing: Yes ([id number]) Assessment & Plan Assessment & Plan (1) Physical exam: Code(s): Z00.00 - Encounter for general adult medical examination without abnormal findings Category: Medical (2) Encounter for routine adult physical exam with abnormal findings: Code(s): Z00.01 - Encounter for general adult medical examination with abnormal findings Category: Medical Plan . Orders: Orders TSH reflex Free T4 Today Z00.01 - Encounter for general adult medical examination with abnormal findings UA CC w/rflx Micro + Cult Today Z00.01 - Encounter for general adult medical examination with abnormal findings Lipid Panel Today Z00.01 - Encounter for general adult medical examination with abnormal findings Complete Blood Count Auto Diff Today Z00.01 - Encounter for general adult medical examination with abnormal findings Comprehensive [place]. Panel Fast Today Z00.01 - Encounter for general adult medical examination with abnormal findings
== END 2025-08-15 12:55 | disposition home or self-care (01) ==
LOC: HO.HMCC 11:30
PROVIDERS: PCP Nurse Practitioner Family; Visit Provider Nurse Practitioner Family
DX: K76.0 Fatty (change of) liver, not elsewhere classified (principal); E66.9 Obesity, unspecified; Z68.34 Body mass index [BMI] 34.0-34.9, adult

== ENCOUNTER → 2025-08-15 11:29 | Outpatient (BNVA) | payer OTHER, SELFPAY | PROVIDERS: PCP Nurse Practitioner Family; Visit Provider Nurse Practitioner Family | DX: Z00.01 Encounter for general adult medical examination with abnormal findings (principal); R74.8 Abnormal levels of other serum enzymes; E66.9 Obesity, unspecified; K76.0 Fatty (change of) liver, not elsewhere classified; Z68.34 Body mass index [BMI] 34.0-34.9, adult | CPT/HCPCS: 96127 ==

== ENCOUNTER 2025-09-08 08:35 | Outpatient (AMB) | payer OTHER, SELFPAY ==
--- NOTE | 2025-09-08 08:37 | A.OFFVIS_ITS ---
Vital Signs 09/08/25 08:38 09/08/25 08:38 Height 5 ft 9 in 5 ft 9 in Weight 234 lb 227 lb BMI 34.6 33.5 Intake Visit Reasons: New Problem - Bilateral Hand Pain - EMG Done Intake Note: Sonny is a 65 year old right hand dominant male who presents today for a New Problem Visit with complaints of Bilateral Hand Pain. He reports the Right > Left . Patient reports that he is having mostly pain that is worsened with grasping and lifting. He has mild numbness. No previous treatments. EMG was done in 2022 Allergies No Known Allergies (No Known Allergies*) Allergy (Verified 09/08/25 08:38) HPI HPI New Problem - Bilateral Hand Pain - EMG Done: Details: Sonny is a 65 year old right hand dominant male who presents today for a New Problem Visit with complaints of Bilateral Hand Pain. He reports the Right > Left . Patient reports that he is having mostly pain that is worsened with grasping and lifting. He has mild numbness. No previous treatments. EMG was done in 2022 HPI Comments Details: History of Present Illness The patient is a 65 year old male presenting with pain throughout his entire body, with the most severe symptoms in his right hand. He has experienced symptoms in the right hand for years, which have become progressively worse over the last few years. He reports numbness and tingling in the right hand if he holds onto something for a period of time, and also after activities such as handling firewood. He also endorses that his right hand goes numb and tingly at night. Two years ago, he experienced loss of feeling in three fingers and underwent nerve testing related to his neck. An EMG was performed on the left side at that time. He reports that those symptoms resolved with walking and massage therapy. Results - Nerve Conduction Studies: An EMG on the left upper extremity was performed two years ago, which had a positive finding for mild CTS. FOR[facility]LY [facility] Medical History Fatty liver Surgical History History of total right hip arthroplasty History of removal of cyst Torn rotator cuff Family History Father Myocardial infarction Mother Alzheimer's disease COPD (chronic obstructive pulmonary disease) Maternal Grandfather No problems noted. Maternal Grandmother No problems noted. Paternal Grandfather Heart problem Paternal Grandmother No problems noted. Social History Household Members Other:: 3 kids- Housing: House Alcohol intake: current Alcohol intake frequency: a few times a week Patient Tobacco Use Status: Never used Tobacco e-Cigarette/Vaping Use: Never Used Current occupational status: employed Current occupation: [employer]/ right hand dominant Cognitive needs: No Hearing needs: No Vision needs: No Review of Systems Narrative Review of Systems - General: Reports pain throughout the entire body. - Neurological: Reports numbness and tingling in his right hand, which occurs with activity and at night. - Musculoskeletal: Reports pain in his right hand as his worst symptom. Systems reviewed and are negative except as per HPI and below Physical Exam Exam Exam: Physical Exam - Hands: Able to make a full closed fist bilaterally. - No thenar muscle wasting noted bilaterally. - Neurological: Sensation is intact to light touch in the median and ulnar nerve distribution bilaterally. - Tinel's test is negative bilaterally. - Range of Motion: Wrist flexion is approximately 80 degrees bilaterally. - Wrist extension is approximately 70 degrees bilaterally. Procedure Vital Signs: BMI result Body Mass Index 33.5 Assessment & Plan Assessment & Plan (1) Numbness and tingling in right hand: Code(s): R20.0 - Anesthesia of skin; R20.2 - Paresthesia of skin Category: Medical (2) Left carpal tunnel syndrome: Code(s): G56.02 - Carpal tunnel syndrome, left upper limb Category: Medical Plan Plan Patient was informed and verbally consented to the use of an ambient scribe for clinic note documentation during this visit. 1. Carpal tunnel syndrome, right upper limb G56.01 The patient's symptoms of right-hand pain, intermittent numbness, and tingling are concerning for carpal tunnel syndrome, particularly given the chronicity, progressive nature, and nocturnal symptoms. Since the prior EMG was for the left side, an EMG and nerve conduction study will be ordered for the right upper extremity to establish a definitive diagnosis. While awaiting the study, a Velcro wrist splint will be provided for the patient to wear on the right wrist only at night to help manage symptoms. No daytime activity restrictions are necessary at this point. A follow-up appointment will be scheduled after the study to discuss the results and further treatment options. 2. left carpal tunnel syndrome G56.02 The patient has a history of left-sided finger numbness, for which he had an EMG two years ago. EMG did reveal left-sided carpal tunnel syndrome Since the right side is significantly more symptomatic, the decision was made to prioritize diagnostic testing for the right hand. No new intervention is planned for the left side at this time. Discussion Notes I discussed with the patient that his symptoms of pain, numbness, and tingling in the right hand are suggestive of carpal tunnel syndrome, and that the risk of this condition increases with age. I explained that because his previous nerve study was on the less symptomatic left side, I am ordering an EMG and nerve conduction study for his right hand to obtain a clear diagnosis. I reassured him that his current physical exam findings, including normal sensation and no mu scle wasting, are very good signs. As an interim measure while awaiting the test, I have prescribed a Velcro wrist splint to be worn on the right wrist at night to help with those symptoms. My office will call him to schedule the test, and we will arrange a follow-up appointment to review the results and discuss further treatment options once the study is complete. Patient Instructions - An EMG and nerve conduction study (a test for your nerves) has been ordered for your right hand. - Our office will call you to help you schedule an appointment for this test. - You will be fitted for a Velcro wrist splint for your right wrist today. - Please wear this splint only at night while you are sleeping. - During the day, do not wear the splint and continue to work on moving your hand and wrist as you normally would. - There are no restrictions on your activities at this time. - After the test is finished, our office will call you to schedule a follow-up appointment to talk about the results and next steps. Orders: Orders NE electromyogram (EMG) Today R20.0 - Anesthesia of skin, R20.2 - Paresthesia of skin NE nerve conduction velocity Today R20.0 - Anesthesia of skin, R20.2 - Paresthesia of skin Coding Level of Care Code New Pt Level 3 (66053) Diagnoses Numbness and tingling in right hand R20.0; R20.2 Left carpal tunnel syndrome G56.02
[2025-09-08 08:38] VITALS: BMI 33.5; BMI 34.6
== END 2025-09-08 09:05 | disposition home or self-care (01) ==
LOC: HO.HOS 08:36
PROVIDERS: PCP Nurse Practitioner Family
DX: R20.0 Anesthesia of skin (principal); R20.2 Paresthesia of skin; G56.02 Carpal tunnel syndrome, left upper limb
CPT/HCPCS: 99213